=== PATIENT | female | born 1950 | race Caucasian/White ===

== ENCOUNTER → 2019-04-23 | Outpatient (CLI) | payer MEDICARE, OTHER ==
[~2019-04-23] MED LIST: ASPI-1471 PO; ASTR1POW MC; CHOL10005 PO; CLOT15CR63 TP; HYDR28GE3 TP; LACT1CAP6 PO; MULT1CAP59 PO; NYST60PO9 TP; OMEG-96 PO; PANT40TA65 PO; PRAV20TA65 PO; PRAV40TA78 PO; PYCNOGENOL PO; THERACURMIN PO; UBID100C48 PO; [UNRECOGNIZED DRUG - OTHER]; [UNRECOGNIZED DRUG - OTHER] PO; [UNRECOGNIZED DRUG - OTHER] TD
--- NOTE | 2019-04-23 14:30 | RADIOLOGY IMAGING REPORT ---
[place] [facility] [place] Melissa Payne : 1950 MR: [id number] V: [id number] EXAM DATE: ORDERING PHYSICIAN: STEPH GRANT TECHNOLOG[place] [facility] [place] : 1950 Visit/Account:[id number] Date of Sevice: 04/23/2019 THYROID HISTORY: Enlarged thyroid on palpation COMPARISON: None. FINDINGS: SIZE: Normal. Right lobe: 4.1 x 1.5 x 1.6 cm Left lobe: 4.1 x 1.3 x 1.5 cm Isthmus: 3 mm PARENCHYMA: Diffusely heterogeneous NODULES: Right lobe: * None discrete. Left lobe: * None discrete. Isthmus: * None discrete. VASCULARITY: Increased bilaterally ADDITIONAL FINDINGS: None. IMPRESSION: Heterogeneous thyroid gland with increased vascularity bilaterally REFERENCE: 2015 [place] [employer] Management Guidelines for Adult Patients with Thyroid Nodules and D ifferentiated Thyroid Cancer: The [place] [employer] Guidelines Task Force on Thyroid Nodul es and Differentiated Thyroid Cancer. SONOGRAPHIC PATTERNS: * Benign: Purely cystic nodules (no solid component); estimated risk of malignancy <1 percent; no bi opsy recommended. * Very Low Suspicion: Spongiform or partially cystic nodules without any of the sonographic features described in low, intermediate, or high suspicion patterns; estimated risk of malignancy <3 percent; consider FNA at > 2 cm (Observation without FNA is also a reasonable option). * Low Suspicion: Isoechoic or hyperechoic solid nodule, or partially cystic nodule with eccentric so lid areas, without microcalcification, irregular margin or ETE (extra-thyroidal extension), or taller than wide shape; estimated risk of malignancy 5-10 percent; recommend FNA at >1.5 cm. * Intermediate Suspicion: Hypoechoic solid nodule with smooth margins without microcalcifications, E TE (extra-thyroidal extension), or taller than wide shape; estimated risk of malignancy 10-20 percent ; recommend FNA at > 1 cm. * High Suspicion: Solid hypoechoic nodule or solid hypoechoic component of a partially cystic nodule with one or more of the following features: irregular margins (infiltrative, microlobulated), microc alcifications, taller than wide shape, rim calcifications with small extrusive soft tissue component, evidence of ETE (extra-thyroidal extension); estimated risk of malignancy >70-90 percent; recommend FNA at > 1 cm. NOTES: * Although a sonographically suspicious subcentimeter thyroid nodule without evidence of extrathyroi jacky extension or sonographically suspicious lymph nodes may be observed with close sonographic follow -up rather than pursuing immediate FNA, patient age and preference may modify decision-making. A > 50% interval increase in nodule volume and/or development of new suspicious sonographic features are felt to be a valid reasons for potential re-aspiration of a nodule previously shown to have benig n FNA cytology. Report Dictated By: Gaye Diaz MD at 04/23/2019 2:20 PM Report E-Signed By: Gaye Diaz MD at 04/23/2019 2:22 PM BRIANAN:CHELSEA
== END ==
LOC: US 00:58
PROVIDERS: ATTEND Nurse Practitioner Family
DX: E04.9 Nontoxic goiter, unspecified (principal)
CPT/HCPCS: 76536

== ENCOUNTER 2019-04-29 02:06 | Day surgery (SDC) | payer MEDICARE, OTHER ==
[~2019-04-29] VITALS: Ht 165.1 cm; Wt 98.0 kg
[2019-04-29] VITALS (7 sets, daily range): BP systolic 92–161; BP diastolic 59–110
[2019-04-29] MEDS ORDERED: PROPOFOL EMUL(*) 10MG/ML 20 ML 40 ML ONE (06:59)
[2019-04-29] MEDS ORDERED: NORMOSOL R SOLN(*) 1000 ML BAG 1,000 ML IV PRN (08:20)
[2019-04-29] MEDS ORDERED: LIDOCAINE/SOD BICARB 8.4% SYR ID ONE (08:20)
--- NOTE | 2019-04-29 10:19 | Short(Outpt) Discharge Summary ---
Discharge Summary Reason for Hosp/Final Diag: (1) History of colon polyps Status: Chronic Hospital Course & Plan: Colonoscopy completed without problems, normal. Departure Discharge to: Home, Self Care Discharge Instructions Home Meds Reported Medications Nystatin (NYSTOP) 60 Gm Powder, 30 GM TP DIRECTED PRN for FUNGAL INFECTIONS 04/22/19 Clotrimazole (CLOTRIMAZOLE) 15 Gm Cream..g., 15 GM TP DIRECTED PRN for ITCHING 04/22/19 Hydrocortisone (CORTIZONE 10) 28 Gm Gel..gram., 28 GM TP DIRECTED PRN for ITCHING 04/22/19 [Devinir 1% Cream] No Conflict Check, 1 JOSE TD DIRECTED PRN for COLD SORES 04/22/19 [Denivir Cream] No Conflict Check 04/22/19 Astragalus Root (ASTRAGALUS ROOT) 1 Gm Powder, 2 GM MC QDAY PRN for IMMUNE FUNCTION 04/22/19 Multivitamin (MULTIVITAMINS) 1 Each Capsule, 1 EACH PO QDAY, CAPSULE 04/22/19 [Theracurmin] No Conflict Check, 2 TAB PO QDAY 04/22/19 [Pycnogenol] No Conflict Check, 2 EA PO QDAY 04/22/19 Lactobacillus Combination No.4 (PROBIOTIC) 1 Each Capsule, 2 EACH PO QDAY, CAPSULE 04/22/19 [Equate Fiber Therapy] No Conflict Check, 4 TAB PO QDAY 04/22/19 Ubidecarenone (COQ-10) 100 Mg Capsule, 100 MG PO QDAY, CAPSULE 04/22/19 Cholecalciferol (Vitamin D3) (VITAMIN D3) 1,000 Unit Tablet, 5000 INTLU PO QDAY, TAB 04/22/19 Pravastatin Sodium (PRAVASTATIN SODIUM) 40 Mg Tablet, 40 MG PO QDAY 04/22/19 [place]-3 Fatty Acids/Fish Oil (OMEGA 3 1,000 MG SOFTGEL) Unknown Strength Capsule, PO QDAY, CAPSULE 03/11/19 Aspirin (ASPIR 81) 81 Mg Tablet.dr, 81 MG PO QDAY, TAB 03/11/19 Pantoprazole Sodium (PANTOPRAZOLE SODIUM) 40 Mg Tablet.dr, 40 MG PO QDAY, TAB.SR 03/11/19 Discontinued Reported Medications Pravastatin Sodium (PRAVACHOL) 20 Mg Tablet, 20 MG PO QDAY, TAB 03/11/19 Diet: Regular Activity: As Tolerated Special Instructions: Your colonoscopy was completed without problems and your prep was excellent (Good Job!!). I didn't find any polyps or other cancerous or precancerous conditions. I recommend that your next colonoscopy be in 10 years. My office will call you in the next day or two to schedule an appointment with me to discuss your gallstones. RAMBO LEWIS MD Apr 29, 2019 10:19
== END 2019-04-29 11:30 | disposition home or self-care (01) ==
LOC: OR 02:06
PROVIDERS: ATTEND Surgery
DX: Z12.11 Encounter for screening for malignant neoplasm of colon (principal); Z86.010 Personal history of colon polyps; K57.30 Diverticulosis of large intestine without perforation or abscess without bleeding
CPT/HCPCS: 00812; G0121; J2704

== ENCOUNTER → 2019-05-07 | Outpatient (CLI) | payer MEDICARE, OTHER ==
--- NOTE | 2019-05-07 13:43 | RADIOLOGY IMAGING REPORT ---
FACILITY: [facility] PATIENT NAME: Melissa Payne : 1950 MR: [id number] V: [id number] EXAM DATE: ORDERING PHYSICIAN: STEPH GRANT TECHNOLOGIST: Location: [facility] Patient: Melissa Payne : 1950 Visit/Account:[id number] Date of Sevice: 05/07/2019 DEXA Scan 05/07/2019 9:28 AM HISTORY: Menopause. Screening for osteoporosis. Comparison: None available. LUMBAR SPINE: The bone mineral density (BMD) measured from L1-L3 correlates with a Z-score 0.6 and a T-score of 0.0 which is Normal as defined by the World Health Organization. The corresponding risk of fracture in the lumbar spine is Not increased compared with a young adult reference population. HIP: Bone mineral density (BMD) measured in the Left total hip region correlates with a Z-score -1.5 and a T-score of -2.3 which is severely osteopenic as defined by the World Health Organization. The corre sponding risk of fracture in the hip is increased 4-6 times compared with a young adult reference pop ulation. Bone mineral density (BMD) measured in the Femoral Neck region measures 0.738 g/cm2. T-score is -2.2 . Impression: 1. Lumbar spine: Normal. 2. Left Total Hip: Severe osteopenia. 3. Femoral Neck: Bone Mineral Density is 0.738 g/cm2. Severe osteopenia. The next DEXA scan of this patient should include the following sites: L1-L4 and the left hip. FRAX? WHO Fracture Risk Assessment Tool link: <http://www.shef.ac.uk/FRAX/tool.jsp?[email or web address]> PLEASE NOTE: 1) The World Health Organization defines low BMD as follows: T-score Normal > -1 Osteopenia < -1 and > -2.5 Osteoporosis < -2.5 without fractures Established osteoporosis < -2.5 with fractures 2) In general, you may wish to consider: Diagnosis Treatment Follow-up DEXA Normal BMD Prevention 2-3 years Osteopenia Prevention/therapy 1-2 years Osteoporosis Therapy Yearly 3) Fracture risk estimated from the T-score is more accurate for vertebral fractures (often spontane ous) than for hip fractures. Report Dictated By: Bernard Parra MD at 05/07/2019 1:33 PM Report E-Signed By: Bernard Parra MD at 05/07/2019 1:35 PM WSN:CHELSEA
== END ==
LOC: RAD 08:10
PROVIDERS: ATTEND Nurse Practitioner Family
DX: M85.80 Other specified disorders of bone density and structure, unspecified site (principal); Z78.0 Asymptomatic menopausal state
CPT/HCPCS: 77080